=== PATIENT | male | born 1960 | race Caucasian/White ===

== ENCOUNTER 2016-11-16 10:51 | Emergency (ER) | payer MEDICARE ==
[~2016-11-16] VITALS: Ht 170.2 cm; Wt 118.0 kg
[2016-11-16 10:53] VITALS: BP 158/100; PULSE 75; RESP 18; TEMP 98.1; O2SAT 97
[2016-11-16] MEDS ORDERED: SODIUM CHLORIDE 0.9% FLUSH 10 ML FLUSH IVF PRN (11:30)
[2016-11-16] MEDS ORDERED: ASPIRIN 81 MG CHEW TAB PO ONE (11:30)
[2016-11-16] MEDS ORDERED: SODIUM CHLORID 0.9% 500 ML INJ 500 ML IV ONE (11:30)
[2016-11-16 11:41] VITALS: O2SAT 99
[2016-11-16 11:53] LABS: AUTOMATED NEUTROPHIL # 4.7 TH/MM3 (1.8-7.7); BASOPHIL # 0.1 TH/MM3 (0-0.2); BASOPHIL % 0.7 % (0.0-2.0); EOSINOPHIL # 0.1 TH/MM3 (0-0.4); EOSINOPHIL % 1.8 % (0.0-4.0); HEMATOCRIT 43.9 % (39.0-51.0); HEMO FLAGS DIFF FINAL; LYMPHOCYTE # 2.9 TH/MM3 (1.0-4.8); MEAN CELL VOLUME 90.7 FL (80.0-100.0); MEAN CORPUSCULAR HEMOGLOBIN 30.8 PG (27.0-34.0); MEAN CORPUSCULAR HGB CONC 33.9 % (32.0-36.0); NEUT % 57.5 % (16.0-70.0); PLATELET COUNT 162 TH/MM3 (150-450); RED BLOOD COUNT 4.84 MIL/MM3 (4.50-5.90); RED CELL DISTRIBUTION WIDTH 13.4 % (11.6-17.2); WHITE BLOOD COUNT 8.2 TH/MM3 (4.0-11.0)
[2016-11-16 12:00] LABS: APTT (PATIENT) 24.5 SEC (24.3-30.1); PROTHROMBIN TIME - PATIENT 10.7 SEC (9.8-11.6)
[2016-11-16 12:07] LABS: ALKALINE PHOSPHATASE 82 U/L (45-117); ALT (GPT) 51 U/L (12-78); ANION GAP 11 MEQ/L (5-15); AST (GOT) 55 U/L (15-37); BICARBONATE 24.5 MEQ/L (21.0-32.0); BLOOD UREA NITROGEN 12 MG/DL (7-18); CHLORIDE 103 MEQ/L (98-107); GLOMERULAR FILTRATION RATE 114 ML/MIN (>89); MAGNESIUM 1.9 MG/DL (1.5-2.5); SODIUM (NA) 138 MEQ/L (136-145); TOTAL BILIRUBIN ADULT 0.4 MG/DL (0.2-1.0)
[2016-11-16 12:08] LABS: POTASSIUM 4.8 MEQ/L (3.5-5.1)
--- NOTE | 2016-11-16 12:11 | RADRPT ---
EXAM DATE/TIME: 11/16/2016 11:34 [place] COMPARISON: No previous studies available for comparison. INDICATIONS : Chest pain. MEDICAL HISTORY : Diabetes. SURGICAL HISTORY : None. ENCOUNTER: Initial ACUITY: 1 day PAIN SCORE: 10/10 LOCATION: Bilateral chest FINDINGS: A single view of the chest demonstrates the lungs to be symmetrically aerated without evidence of mas s, infiltrate or effusion. The cardiomediastinal contours are unremarkable. Osseous structures are intact. CONCLUSION: 1. No acute cardiopulmonary disease. John Luciano MD on November 16, 2016 at 12:09 Board Certified Radiologist. This report was verified electronically.
[2016-11-16 13:00] VITALS: BP 128/86; PULSE 76; RESP 18; O2SAT 99
--- NOTE | 2016-11-16 13:02 | PD ---
HPI Chief Complaint: Cardiac Complaint Time Seen by Provider: 11:09 Travel History International Travel<30 days: No Contact w/Intl Traveler<30days: No Traveled to known affect area: No History of Present Illness HPI Is a 56-year-old man who presents to the emergency department complaining of episode of pressure-like chest discomfort associated with difficulty breathing earlier today. He is sweating with it and left arm pain. He had similar symptoms one to 2 years ago. He's had a battery of testing including a stress test about 6 months or so ago. He has more tests pending. He's had left arm surgery and has left arm pain off-and-on. The chest pain and arm pain didn't seem to correspond however. He has hypertension and GERD, but no history of known CAD. He otherwise has been feeling generally well and healthy. He is visiting from out of town. History Past Medical History Medical History: Denies Significant Hx Tetanus Vaccination: Unknown Influenza Vaccination: No Social History Alcohol Use: Yes (SELDOM, TWICE A YEAR) Tobacco Use: No Allergies-Medications (Allergen,Severity, Reaction): Coded Allergies: No Known Allergies (Unverified , 11/16/16) Reported Meds & Prescriptions Reported Meds & Active Scripts Active No Active Prescriptions or Reported Medications Review of Systems Except as stated in HPI: all other systems reviewed are Neg Physical Exam Narrative GENERAL: Well-appearing 56-year-old man, no acute distress. SKIN: Focused skin assessment warm/dry. HEAD: Atraumatic. Normocephalic. EYES: Pupils equal and round. No scleral icterus. No injection or drainage. ENT: No nasal bleeding or discharge. Mucous membranes pink and moist. NECK: Trachea midline. No JVD. CARDIOVASCULAR: Regular rate and rhythm. No murmur appreciated. RESPIRATORY: No accessory muscle use. Clear to auscultation. Breath sounds equal bilaterally. GASTROINTESTINAL: Abdomen soft, non-tender, nondistended. Hepatic and splenic margins not palpable. No right upper quadrant tenderness. MUSCULOSKELETAL: No obvious deformities. No clubbing. No cyanosis. No edema. NEUROLOGICAL: Awake and alert. No obvious cranial nerve deficits. Motor grossly within normal limits. Normal speech. PSYCHIATRIC: Appropriate mood and affect; insight and judgment normal. Data Data Last Documented VS Vital Signs Date Time Temp Pulse Resp B/P Pulse Ox O2 Delivery O2 Flow Rate FiO2 11/16/16 11:41 99 Room Air 11/16/16 11:04 20 11/16/16 10:53 98.1 75 158/100 Orders Electrocardiogram (11/16/16 11:23) Complete Blood Count With Diff (11/16/16 11:23) Comprehensive Metabolic Panel (11/16/16 11:23) Magnesium (Mg) (11/16/16 11:23) Prothrombin Time / Inr (Pt) (11/16/16 11:23) Act Partial Throm Time (Ptt) (11/16/16 11:23) Troponin I (11/16/16 11:23) Lipase (11/16/16 11:23) Chest, Single Ap (11/16/16 11:23) Ecg Monitoring (11/16/16 11:23) Iv Access Insert/Monitor (11/16/16 11:23) Oximetry (11/16/16 11:23) Oxygen Administration (11/16/16 11:23) Aspirin Chew (Aspirin Chew) (11/16/16 11:30) Sodium Chloride 0.9% Flush (Ns Flush) (11/16/16 11:30) Sodium Chlorid 0.9% 500 Ml Inj (Ns 500 M (11/16/16 11:30) Labs Laboratory Tests Test 11/16/16 11:20 White Blood Count 8.2 TH/MM3 Red Blood Count 4.84 MIL/MM3 Hemoglobin 14.9 GM/DL Hematocrit 43.9 % Mean Corpuscular Volume 90.7 FL Mean Corpuscular Hemoglobin 30.8 PG Mean Corpuscular Hemoglobin 33.9 % Concent Red Cell Distribution Width 13.4 % Platelet Count 162 TH/MM3 Mean Platelet Volume 9.4 FL Neutrophils (%) (Auto) 57.5 % Lymphocytes (%) (Auto) 35.0 % Monocytes (%) (Auto) 5.0 % Eosinophils (%) (Auto) 1.8 % Basophils (%) (Auto) 0.7 % Neutrophils # (Auto) 4.7 TH/MM3 Lymphocytes # (Auto) 2.9 TH/MM3 Monocytes # (Auto) 0.4 TH/MM3 Eosinophils # (Auto) 0.1 TH/MM3 Basophils # (Auto) 0.1 TH/MM3 CBC Comment DIFF FINAL Differential Comment Prothrombin Time 10.7 SEC Prothromb Time International 1.0 RATIO Ratio Activated Partial 24.5 SEC Thromboplast Time Sodium Level 138 MEQ/L Potassium Level 4.8 MEQ/L Chloride Level 103 MEQ/L Carbon Dioxide Level 24.5 MEQ/L Anion Gap 11 MEQ/L Blood Urea Nitrogen 12 MG/DL Creatinine 0.72 MG/DL Estimat Glomerular Filtration 114 ML/MIN Rate Random Glucose 101 MG/DL Calcium Level 8.4 MG/DL Magnesium Level 1.9 MG/DL Total Bilirubin 0.4 MG/DL Aspartate Amino Transf 55 U/L (AST/SGOT) Alanine Aminotransferase 51 U/L (ALT/SGPT) Alkaline Phosphatase 82 U/L Troponin I LESS THAN 0.02 NG/ML Total Protein 7.8 GM/DL Albumin 3.5 GM/DL Lipase 317 U/L [facility] Medical Decision Making Medical Screen Exam Complete: Yes Emergency Medical Condition: Yes Interpretation(s) My review of EKG: Normal sinus rhythm at a rate of 74, normal axis, normal intervals, no acute ischemia. LABS: CBC is unremarkable. CMP is unremarkable. Troponin is negative. Lipase is normal. Coags unremarkable. Chest X or negative. Differential Diagnosis ACS, cholelithiasis, gastritis, pancreatitis, other Narrative Course Medical decision making This is a 56-year-old man who presents to the emergency department whenever the unusual episode of chest pain with diaphoresis rating her left arm. This is suspicious for cardiac ischemia. Gastritis also possibility. Patient has severe gastritis. He may have also had cholelithiasis. He looks overall well. He has no symptoms now. He isn't one previous episode in the past. He has no history suggestive mask bleeding pattern of unstable angina. I recommended the patient stay for further evaluation in her chest pain Center. 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 He understands the increased risk of sudden cardiac or UT. He does agree to return immediately if he has any recurrent symptoms. Diagnosis Primary Impression: Chest pain Additional Instructions: Take aspirin daily as discussed. Follow-up with her primary doctor soon as you returned home for further evaluation. Return to the emergency department immediately for any chest pain, trouble breathing, or any other new or worsening symptoms. Med/Other Pt SpecificInfo: No Change to Meds Scripts No Active Prescriptions or Reported Meds Disposition: 01 DISCHARGE HOME Condition: Stable Nicola Moreno MD Nov 16, 2016 13:02
--- NOTE | 2016-11-17 12:12 | EKG ---
Date Performed: 11/16/2016 Time Performed: 11:06:59 PTAGE: 56 years EKG: Sinus rhythm NORMAL ECG NO PREVIOUS TRACING DOCTOR: Everette López Interpretating Date/Time 11/17/2016 12:11:47
== END 2016-11-16 13:39 | disposition home or self-care (01) ==
LOC: NEPC 10:51
DX: R07.9 Chest pain, unspecified (principal); R06.00 Dyspnea, unspecified; R61 Generalized hyperhidrosis; M79.602 Pain in left arm; I10 Essential (primary) hypertension; Z87.19 Personal history of other diseases of the digestive system
CPT/HCPCS: 71010; 80053; 83690; 83735; 84484; 85025; 85610; 85730; 93005; 96360; 99285; J7040